=== PATIENT | female | born 1980 | race Two or more races ===

== ENCOUNTER 2020-04-02 16:33 | Emergency (ER) | payer OTHER ==
[~2020-04-02] VITALS: Ht 165.1 cm; Wt 74.8 kg
[2020-04-02] MEDS ORDERED: ACETAMINOPHEN 325 MG TABLET PO ONE (17:30)
[2020-04-02] MEDS ORDERED: ACETAMINOPHEN ES 500 MG TABLET ONE (17:53)
[2020-04-02 18:01] VITALS: BP 137/92
== END 2020-04-02 18:08 | disposition home or self-care (01) ==
LOC: ER 16:37
DX: F41.0 Panic disorder [episodic paroxysmal anxiety] (principal); R51.9 Headache, unspecified; Z20.828 Contact with and (suspected) exposure to other viral communicable diseases; J45.909 Unspecified asthma, uncomplicated
CPT/HCPCS: 82962-TC